=== PATIENT | male | born 1950 | race Caucasian/White ===

== ENCOUNTER → 2016-11-01 | Outpatient (CLI) | payer MEDICARE ==
--- NOTE | 2016-11-01 18:17 | CARD ---
APPROVED REPORT EXAM: Two-dimensional and M-mode echocardiogram with Doppler and color Doppler. Other Information Quality : GoodHR: 60bpm Rhythm : NSR INDICATION Dizziness and Vertigo Chest Pain 2D DIMENSIONS RVDd3.3 (2.9-3.5cm)Left Atrium(2D)2.9 (1.6-4.0cm) IVSd0.9 (0.7-1.1cm)Aortic Root(2D)3.0 (2.0-3.7cm) LVDd4.0 (3.9-5.9cm)LVOT Diameter2.2 (1.8-2.4cm) PWd0.9 (0.7-1.1cm)LVDs2.7 (2.5-4.0cm) FS (%) 33.2 %SV44.4 ml LVEF(%)62.4 (>50%) Aortic Valve AoV Peak Hamzah.130.4cm/sAoV VTI26.8cm AO Peak GR.6.8mmHgLVOT Peak Hamzah.127.4cm/s LVOT VTI 27.16cmAO Mean GR.4mmHg MORRIS (VMAX)3.09dh4WDW (VTI)3.98cm2 Mitral Valve MV E Sfenavzn28.1cm/sMV DECEL HZCO523vs MV A Ggoxaglh59.5cm/sMV E Mean Gr.1mmHg MV AQX07znY/A Ratio1.2 MV A Oiabziet695ksBWD (PHT)2.92cm2 TDI E/Lateral E'4.6E/Medial E'7.5 Pulmonary Valve PV Peak Hnknmbqw66.3cm/sPV Peak Grad.4mmHg Tricuspid Valve TR P. Eaclvhep728an/sRAP CSKKBBVH2akOc TR Peak Gr.95otXrDXTO97rqTg Pulmonary Vein S1 Altcmztb65.4cm/sD2 Fmazxars26.3cm/s PVa wzyegypp27kkhm LEFT VENTRICLE The left ventricle is normal size. There is normal left ventricular wall thickness. Left ventricle sy stolic function is normal. The Ejection Fraction is 60-65%. There is normal LV segmental wall motion. There is no ventricular septal defect visualized. RIGHT VENTRICLE The right ventricle is normal size. The right ventricular systolic function is normal. ATRIA The left atrium size is normal. The right atrium size is normal. The interatrial septum is intact wit h no evidence for an atrial septal defect or patent foramen ovale as noted on 2-D or Doppler imaging. AORTIC VALVE The aortic valve is thickened but opens well. Doppler and Color Flow revealed no significant aortic r egurgitation. There is no significant aortic valvular stenosis. MITRAL VALVE The mitral valve is normal in structure and function. There is no evidence of mitral valve prolapse. There is no mitral valve stenosis. Doppler and Color Flow revealed trace mitral regurgitation. TRICUSPID VALVE The tricuspid valve is normal in structure and function. Doppler and Color Flow revealed trace to mil d tricuspid regurgitation. The PA pressure was estimated at 27 mmHg. There is no tricuspid valve sten osis. PULMONIC VALVE The pulmonic valve is not well visualized. Doppler and Color Flow revealed no pulmonic valvular regur gitation. There is no pulmonic valvular stenosis. GREAT VESSELS The aortic root is normal in size. The ascending aorta is normal in size. The IVC is normal in size a nd collapses >50% with inspiration. PERICARDIAL EFFUSION There is no pleural effusion. There is no evidence of significant pericardial effusion. Critical Notification Critical Value: No <Conclusion> Left ventricle systolic function is normal. The Ejection Fraction is 60-65%. There is normal LV segmental wall motion.
--- NOTE | 2016-11-04 14:21 | EKG ---
[facility] [address] [place] [address] Test Date: 2016-11-01 Test Time: 12:19:44 Pat Name: LISA COOPER Department: Room: Gender: M Database Administrator: Sinan Patel : [id number] Requested By: ARIEL DELAROSA Order Number: [id number] Reading MD: Interpretive Statements
== END | disposition home or self-care (01) ==
LOC: ECHO 13:35
PROVIDERS: ATTEND Physician Assistant Medical
DX: R42 Dizziness and giddiness (principal); R07.9 Chest pain, unspecified
CPT/HCPCS: 93225; 93226; 93306

== ENCOUNTER → 2020-03-15 | Outpatient (CLI) | payer MEDICARE ==
--- NOTE | 2020-03-15 16:55 | KCIC ---
STUDY: MRI of the right shoulder without contrast INDICATION: Right shoulder pain. Recent fall. COMPARISON: None available. TECHNIQUE: Multiplanar MR imaging of the right shoulder performed without the use of intravenous or intra-articular contrast. FINDINGS: AC joint: Moderate to severe arthrosis. Subacromial subdeltoid bursitis. Rotator cuff: Large full-thickness, essentially fullwidth U-shaped tear of the supraspinatus and infraspinatus off the footprint. The torn supraspinatus stump is retracted to the level of the glenoid articular surface. Variable infraspinatus retraction with some fibers located just medial to the glenoid. The teres minor remains intact. Subscapularis tendinosis without high-grade or full-thickness tear. Mild muscular edema of both the supraspinatus and infraspinatus. Mild fatty infiltration of the supraspinatus and infraspinatus. Labrum: Varying degrees of labral degeneration/degenerative tearing along its posterior half to include the biceps-labral anchor. Long head biceps tendon: Remains intact and normally located but with intra-articular tendinosis. Cartilage: No full-thickness defect is identified. There is some partial thickness chondrosis at the superior and medial humeral head. Bones: Heterogeneous marrow signal but without aggressive features. No acute fracture. Relatively mild degenerative changes involving the humeral head and glenoid. Miscellaneous: Communication of subacromial subdeltoid bursal fluid with the subcoracoid bursa. Small shoulder joint effusion with synovitis though there is more pronounced distention of the subscapularis recess. Mild long head biceps tenosynovitis. No acute or concerning abnormality involving the axillary soft tissues. Impression: 1. Large full-thickness, U-shaped tear involving nearly the entire width of the supraspinatus and infraspinatus. Variable tendon retraction with the supraspinatus tendon stump located at the level of the glenoid and some torn infraspinatus tendon fibers just medial to the glenoid. Mild supraspinatus and infraspinatus muscular edema and fatty infiltration. 2. Mild intra-articular long head biceps tendinosis. Labral degeneration/degenerative tearing along its posterior half. 3. Bursitis/synovitis and a small shoulder joint effusion, as above. 4. 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 Electronically signed by: MARTA DAVIS MD (03/15/2020 4:52 PM) [id number]
== END | disposition home or self-care (01) ==
LOC: KCIC MRI 12:41
PROVIDERS: ATTEND Orthopaedic Surgery
DX: M75.101 Unspecified rotator cuff tear or rupture of right shoulder, not specified as traumatic (principal); M19.011 Primary osteoarthritis, right shoulder; M75.21 Bicipital tendinitis, right shoulder; M25.411 Effusion, right shoulder; M62.89 Other specified disorders of muscle; Z89.231 Acquired absence of right shoulder
CPT/HCPCS: 73221

== ENCOUNTER → 2020-04-18 | Outpatient (CLI) | payer MEDICARE ==
[~2020-04-18] MED LIST: CETI10TA74 PO; OMEP20CA16 PO; OXYC1TAB19 PO
== END ==
LOC: LAB 13:42
PROVIDERS: ATTEND Orthopaedic Surgery
DX: Z01.812 Encounter for preprocedural laboratory examination (principal); Z20.828 Contact with and (suspected) exposure to other viral communicable diseases
CPT/HCPCS: U0003-CS

== ENCOUNTER 2020-04-21 06:57 | Day surgery (SDC) | payer MEDICARE ==
[~2020-04-21] VITALS: Ht 180.3 cm; Wt 90.3 kg
[~2020-04-21 06:57] MED LIST changes: -OXYC1TAB19 PO
[2020-04-21] MEDS ORDERED: ONDANSETRON PF 4 MG/2 ML VIAL. IV PRN (07:00)
[2020-04-21] MEDS ORDERED: fentaNYL PF VIAL 100 MCG/2 ML VIAL IV PRN ×2 (07:00)
[2020-04-21] MEDS ORDERED: PROCHLORPERAZINE 10 MG/2 ML VIAL. IV PRN (07:00)
[2020-04-21] MEDS ORDERED: HYDROmorphone 2 MG/ML VIAL IV PRN (07:00)
[2020-04-21] MEDS ORDERED: IV RINGERS,LACTATED 1000ML 1,000 ML IV SCH (07:00)
[2020-04-21] MEDS ORDERED: MORPHINE SULFATE 2 MG/ML VIAL. IV PRN (07:00)
[2020-04-21] MEDS ORDERED: EPINEPHrine VIAL 30 MG/30 ML VIAL ONE (07:23)
[2020-04-21] MEDS ORDERED: LIDOCAINE 1% PF 2 ML VIAL. ONE (07:39)
[2020-04-21] MEDS ORDERED: BUPIVACAINE MPF 0.5% 30 ML VIAL. ONE (07:39)
[2020-04-21] MEDS ORDERED: MIDAZOLAM HCL/PF 2 MG/2 ML VIAL. ONE (07:41)
[2020-04-21] MEDS ORDERED: BUPIVACAINE-EPI 0.5%-1:200000 MPF 30 ML VIAL. INJ ONE (07:45)
[2020-04-21] MEDS ORDERED: PROPOFOL 10 MG/ML (20ML) VIAL. IV ONE (08:00)
[2020-04-21] MEDS ORDERED: ROCURONIUM 50 MG/5 ML VIAL. ONE (08:00)
[2020-04-21] MEDS ORDERED: NEOSTIGMINE METHYLSULFATE 5 MG/5 ML SYRINGE. ONE (08:00)
[2020-04-21] MEDS ORDERED: LIDOCAINE 2% PF 5 ML VIAL. ONE (08:00)
[2020-04-21] MEDS ORDERED: GLYCOPYRROLATE 1 MG/5 ML VIAL. ONE (08:00)
[2020-04-21] MEDS ORDERED: DEXAMETHASONE SOD PHOS 4 MG/ML VIAL ONE (08:00)
[2020-04-21] MEDS ORDERED: ONDANSETRON PF 4 MG/2 ML VIAL. ONE (08:00)
[2020-04-21] MEDS ORDERED: ePHEDrine PF IN SALINE 50 MG/10 ML SYRINGE. IV ONE (10:02)
[2020-04-21 12:50] VITALS: BP 162/99
[2020-04-21] MEDS ORDERED: OXYC1TAB19 PO (12:52)
--- NOTE | 2020-04-21 12:55 | DISCH ---
DISCHARGE INSTRUCTIONS Condition on Discharge Condition on Discharge: Stable Activity After Discharge Activity Instructions for Disc: Other, see below (May perform fine motor tasks with elbow at side no active lifting arm away from body. Wear immobilizer at night at all times, may remove during the day) Diet after Discharge Diet after Discharge: Regular Wound Incision Care Wound/Incision Care: Change dressing (May remove dressing in 2 days may then shower) Contacting the [facility] after DC Call your doctor for: Concerns you may have Follow-Up Follow up with: Dr. Solis 10 days GEORGE SOLIS MD Apr 21, 2020 12:55
[2020-04-21] MEDS ORDERED: oxyCODONE/APAP 7.5/325 1 TAB TABLET PO ONE (13:30)
--- NOTE | 2020-04-21 23:50 | PDOC4 ---
Operative Note Operative Note Date of surgery: 04/21/2020 Preoperative diagnosis: Right shoulder rotator cuff tear and acromioclavicular joint arthralgia Postoperative diagnosis: Same with massive retracted supraspinatus and infraspinatus tear Operative procedure: Right shoulder arthroscopy mini open rotator cuff repair arthroscopic distal clavicle excision and subacromial decompression Surgeon: [facility] Planner: Janak Topete first grade teacher Anesthesia General plus scalene block Estimated blood loss: 10 cc Complications: None Operative indications: Please see my preoperative clinic note for detailed operative indications and note that we had covered the long recovery process the possibility of nonhealing continued pain weakness failure of the rotator cuff repair possibility of infection nerve or blood vessel damage medical or other anesthetic complications among others all his questions were answered and he agrees to proceed with surgical evaluation and treatment. Operative text: Patient was identified procedure verified patient placed in the supine position on the operating table. After adequate amounts of general anesthesia plus a pre-existing scalene block were obtained he was placed in the decubitus position right side up all bony prominences were well-padded and the shoulder was examined under anesthesia found to have full range of motion and no instability. The right shoulder was then prepped and draped in standard sterile fashion and placed in the arthroscopic arm womack with a total of 10 pounds of traction and after timeout was performed patient procedure identified and verified a standard posterior portal was established an anterior portal established using spinal needle localization and the shoulder joint was systematically examined. Glenohumeral joint was noted to be in good condition as were the capsule ligamentous structures. Subscapularis was intact and biceps tendon generally intact without subluxation but he did have a massive retracted tear of the supraspinatus and infraspinatus in an L shaped fashion after extensive mobilization of the rotator cuff tendon was carried out. To allow adequate visualization and fixation traction sutures were placed the rotator cuff footprint was debrided with a subacromial decompression carried out to convert the anterior acromial spur to a type I acromion using cutting block technique distal clavicle was excised 10 mm preserving the overlying joint capsule for stability bony fragments were removed and a mini open incision was made with a total of 2 footprint double loaded juggernaut anchors that were placed in a mattress fashion and tied with side to side repair of the remaining defect. Reinforcement to the lateral row was carried out with a total of two 5.5 [facility] medical lateral row anchors which gave excellent apposition to the rotator cuff footprint and repair was checked in all degrees of in ternal/external rotation thorough irrigation carried out with further saline solution fascial closure accomplished as well as subcutaneous closure with buried Vicryl suture skin closure with subcuticular Monocryl strata fix suture sterile dressings were applied patient was placed in an immobilizer returned to recovery room in stable condition having tolerated procedure well. Janak louis was present for the procedure assisted in patient positioning prepping draping retraction closure GEORGE DE LUNA MD Apr 21, 2020 23:50
== END 2020-04-21 13:38 | disposition home or self-care (01) ==
LOC: SURG 06:57
PROVIDERS: ATTEND Orthopaedic Surgery
PROC: 0RNJ4ZZ Release Right Shoulder Joint, Percutaneous Endoscopic Approach (ICD-10-PCS; principal; 2020-04-21 08:35)
DX: M75.101 Unspecified rotator cuff tear or rupture of right shoulder, not specified as traumatic (principal); Z72.89 Other problems related to lifestyle; Z79.899 Other long term (current) drug therapy
CPT/HCPCS: 29822; 29826; 29827; A7015; C1713; J0171; J0690; J1100; J2250; J2405; J2704; J2710; J3010; J3490; J7120